=== PATIENT | male | born 1955 | race Caucasian/White ===

== ENCOUNTER → 2018-09-18 14:14 | Outpatient (CLI) | payer BC, SELFPAY ==
--- NOTE | 2018-09-18 14:20 | CT_ITS ---
CT sinus wo con CLINICAL INDICATION: ITS.REASON: CHRONIC SINUSITIS ORDERING PHYSICIAN: Jonathan Byrne PATIENT AGE: 63 years COMPARISON: None TECHNIQUE:Axial images obtained with sagittal and coronal reformats. All CT scans at the facility use one or more dose reduction, viz: automated exposure control, ma/kV adjustment per patient size (including targeted exams where dose is matched to indication, i.e. head), or iterative reconstruction technique. FINDINGS: There is moderate mucosal thickening of the frontal sinuses and severe mucosal thickening of the ethmoid sinuses on both sides left slightly more extensive than right. There are bilateral maxillary retention cysts measuring up to 17 mm on the left is 7 mm on the right. There is opacification of the nature aspect of the left maxillary sinus and scattered gas density. A retention cyst or polyp involves the sphenoid sinus on the right anteriorly at 12 mm with other small retention cysts noted and an air-fluid level in the left aspect of the sphenoid sinus. Lobular soft tissue density extends from the nasal cavity on the left into the nasopharynx measuring 19 x 14 mm consistent with a polyp. Follow-up actually measures approximately 4.5 x 1.2 cm. No bony destructive process. No fracture or dislocation. TMJs have an unremarkable appearance. The orbits have an unremarkable appearance. IMPRESSION: 1. 4.5 cm left-sided nasal polyp extending into the nasopharynx. 2. Paranasal sinusitis with scattered cysts/polyps
== END ==
PROVIDERS: PCP Family Medicine; Visit Provider Allergy & Immunology
DX: J32.9 Chronic sinusitis, unspecified (principal)
CPT/HCPCS: 70486

== ENCOUNTER 2019-04-07 18:22 | Inpatient (IN) ==
--- NOTE | 2019-04-07 18:40 | Emergency Department Note ---
ED Disposition Clinical Impression: Unstable angina, Bigeminy, ASCVD (arteriosclerotic cardiovascular disease), Presence of stent in LAD coronary artery Disposition: Still a Patient Condition on Discharge: Serious Time of Disposition: 18:40 - Critical Care Critical Care Time: No Attestation: On , the high probability of a clinically significant, sudden or life threatening deterioration of the following system(s) required my full and direct attention, intervention and personal management. The time I documented below is in addition to time spent performing reported procedures but includes the follow ing listed in this critical care notation. Medical Decision Making - Medical Records Medical records reviewed: Yes: I reviewed the patient's medical records. - Ezequiel Inquiry Pt receiving controlled substance: No Ezequiel was queried for this patient: No - Lab Data Lab results reviewed: Yes: I reviewed the patient's lab results. General Adult HPI - General Stated complaint: chest pain Time Seen by Provider: 04/07/19 18:25 Mode of Arrival: Ambulatory Source of Information: Patient Limitations: No Limitations - History of Present Illness HPI narrative: chris called about this patient's pmhx and current symptomatology. EKG shows bigeminy on arriva - Related Data Allergies Allergy/AdvReac Type Severity Reaction Status Date / Time No Known Allergies Allergy Unverified 08/01/17 14:40 [facility] History - Hepatitis A Screen Attestation statement:: This patient has been screened for Hepatitis A risk factors. I have reviewed the patient's past medical history: Yes ROS Obtained: Yes All systems reviewed & no additional complaints - Cardiovascular Cardiovascular: Reports chest pain, Reports chest pain at rest, Denies dyspnea Physical Exam - General General appearance: alert, in no apparent distress - Head Head exam: atraumatic, normocephalic, normal inspection - Eye Eye exam: Present: normal appearance, PERRL, EOMI - ENT ENT exam: Present: normal exam, normal oropharynx, mucous membranes moist, TM's normal bilaterally, normal external ear exam - Neck Neck exam: Present: normal inspection, full ROM, trachea midline. Absent: meningismus, lymphadenopathy - Chest Chest inspection: Present: normal inspection, symmetric chest wall rise. Absent: tenderness - Respiratory Respiratory exam: Present: normal lung sounds bilaterally. Absent: respiratory distress - Cardiovascular Cardiovascular exam: Present: regular rate, normal rhythm. Absent: JVD - Abdominal Exam Abdominal exam: Present: soft, normal bowel sounds. Absent: distention, tenderness, guarding - Extremities Exam Extremities exam: Present: normal inspection, full ROM, normal capillary refill. Absent: calf tenderness - Back Exam Back exam: Present: normal inspection. Absent: tenderness - Neurological Exam Neurological exam: Present: alert, oriented X3 - Psychiatric Psychiatric exam: Present: normal affect, normal mood - Skin Skin exam: Present: warm, dry, intact, normal color - Lymphatic Lymphatic Findings: no adenopathy
[2019-04-07 18:50] LABS: Basophils # 0.1 K/mm3 (0-0.2); Basophils % 0.7 % (0.1-2.0); Eosinophils # 0.3 K/mm3 (0.0-0.4); Eosinophils % 3.3 % (0.1-12.0); Hemoglobin 13.8 g/dL (14.1-18.0); Lymphocytes # 4.5 K/mm3 (0.7-4.5); Mean Corpuscular HGB Conc 32.8 g/dL (31.8-35.4); Mean Corpuscular Volume 87.8 fl (80-94); Mean Platelet Volume 7.7 fl (7.4-10.4); Monocytes # 0.5 K/mm3 (0.1-1.0); Monocytes % 4.7 % (1.7-9.3); Neutrophils # 4.9 K/mm3 (1.8-7.8); Neutrophils % 47.4 % (37.0-80.0); Platelet Count 246 K/mm3 (142-424); Red Blood Count 4.78 M/mm3 (4.60-6.20); Red Cell Distribution Width 14.2 % (11.5-17.5); White Blood Count 10.3 K/mm3 (4.8-10.8)
[2019-04-07 19:02] LABS: Alanine Aminotransferase 23 U/L (12-78); Albumin Level 3.8 gm/dL (3.4-5.0); Alkaline Phosphatase 74 U/L (46-116); Anion Gap 14.3 mEq/L (5-15); Aspartate Amino Transferase 16 U/L (15-37); Bilirubin,Direct 0.1 mg/dL (0.0-0.2); Bilirubin,Indirect 0.4 mg/dL (0.0-0.9); Bilirubin,Total 0.5 mg/dL (0.2-1.0); Blood Urea Nitrogen 22 mg/dL (7-18); Calcium 9.4 mg/dL (8.5-10.1); Carbon Dioxide 25 mmol/L (21.0-32.0); Chloride 103 mmol/L (98-107); Glucose 90 mg/dL (74-106); Sodium 138 mmol/L (136-145); Total Protein,Serum 7.6 gm/dL (6.4-8.2)
--- NOTE | 2019-04-07 21:42 | History & Physical Report ---
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 Patient has known coronary artery disease having received a stent to the LAD in 2009. He was seen recently by Dr. Tran and had a recent stress echocardiogram which indicated a low ejection fraction of 20%. Cardiac catheterization was planned for next week but he began having pain this evening and he came to the emergency room. Dr. Vela saw the patient in the emergency room. Dr. Angelo saw the patient in the emergency room as well. Dr. Vivas was contacted before patient actually arrived at the emergency room. Arrangements were made for cardiac catheterization. In the emergency room the patient's chest pain improved. Cardiac catheterization by Dr. Vivas revealed some LAD disease and a significant stenosis of the diagonal branch off of the LAD. The patient was treated with 2 stents in the cardiac [employer]. He has had frequent PVCs throughout the time he has been in the hospital. His initial troponin was less than 0.02. The patient has long-standing hypertension and has hyperlipidemia. He has had long-standing difficulty with esophagitis and distal esophageal stenosis. He has required dilatation multiple times in the past. He takes his omeprazole. He has a strong family history of coronary artery disease. His mother at age 70 of heart disease. [facility] History Medical History: Reports:: Arrhythmia, Gastroesophageal Reflux Disease(GERD), Hyperlipidemia, Hypertension Denies:: Cancer, Diabetes Mellitus Type 1, Diabetes Mellitus Type 2, MRSA *Have you ever received a pneumonia vaccine?: No *Have you received a flu vaccine this season?: No Other Medical History: Reports: Arthritis (Some osteoarthritis), Sinus Problems Laterality Cases: Right: Arthroscopy Knee, Arthroscopy Shoulder Other Surgeries: Yes: Cardiac Catheterization, Colonoscopy, EGD Amputation: No Fractures: Yes Comment: Fracture of the distal radius with repair. 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) Smoking Status: Never smoker Alcohol Intake: current Alcohol Intake Frequency:: holidays/special occasions only *Occupational Status:: employed Housing: house *Travel in the last 8 weeks: None - Psychiatric History Expresses thoughts of harming self/others: None Suicide Plan Description: No Plan Family Hx:: Anemia, Asthma, Cancer, Diabetes, Heart Attack, Hyperlipidemia, Hypertension, Kidney Disease Review of Systems - Constitutional Reports fatigue, Denies body ache(s), Denies chills - Eyes Denies change in vision - ENT Reports hearing loss - *Cardiovascular Reports chest pain, Reports chest pain at rest, Reports leg pain with activity, Denies shortness of breath with activity, Denies leg swelling, Denies rapid, pounding, or irregular heartbeat - *Respiratory Reports cough (Occasional allergic), Denies chest congestion, Denies shortness of breath, Denies shortness of breath with activity, Denies wheezing - *Gastrointestinal Denies change in stools, Denies difficulty swallowing (None current) - *Musculoskeletal Reports joint pain (Knee pain) - *Neurologic Denies localized weakness, Denies lack of coordination, Denies loss of vision, Denies dizziness - Psychiatric Denies behavioral changes - Allergic/Immunologic Denies GI upset with certain foods Meds Allergies Allergy/AdvReac Type Severity Reaction Status Date / Time No Known Allergies Allergy Unverified 08/01/17 14:40 Exam Vital signs and Labs for Last 24 Hours: Temp Pulse Resp BP Pulse Ox 98.1 F 98 H 18 131/78 97 04/07/19 19:10 04/07/19 20:20 04/07/19 20:20 04/07/19 20:20 04/07/19 20:20 Laboratory Results - last 24 hr 04/07/19 18:27: WBC 10.3, RBC 4.78, Hgb 13.8 L, Hct 42.0, MCV 87.8, MCH 28.8, MCHC 32.8, RDW 14.2, Plt Count 246, MPV 7.7, Neut % (Auto) 47.4, Lymph % (Auto) 44.0, [place] % (Auto) 4.7, Eos % (Auto) 3.3, Baso % (Auto) 0.7, Neut # (Auto) 4.9, Lymph # (Auto) 4.5, [place] # (Auto) 0.5, Eos # (Auto) 0.3, Baso # (Auto) 0.1 04/07/19 18:27: Sodium 138, Potassium 4.3, Chloride 103, Carbon Dioxide 25, Anion Gap 14.3, BUN 22 H, Creatinine 1.22, Estimated Creat Clear 88, Estimated GFR 60, Est GFR ( Amer) 72, Glucose 90, Calcium 9.4, Total Bilirubin 0.5, Direct Bilirubin 0.1, Indirect Bilirubin 0.4, AST 16, ALT 23, Alkaline Phosphatase 74, Troponin I < 0.02, Total Protein 7.6, Albumin 3.8 I & O for Last 24 hours: Intake & Output 04/05/19 04/06/19 04/07/19 04/08/19 11:59 11:59 11:59 11:59 Weight 207 lb 6 oz - Constitutional no acute distress Comments: Some chest pain when admitted. Improved after admission. - *Routine HEENT Exam Head: Present: normocephalic Eye: Present: PERRL, normal accommodation ENT: Present: mucous membranes moist - *Routine Neck Exam Present: full ROM - Routine Chest/Breast/Axilla Exam Chest wall: Absent: tenderness - *Routine Respiratory Exam Present: CTA bilaterally (A few right basilar rales clear with inspiration.) - *Routine Cardiovascular Exam Present: RRR (Frequent wide-complex ectopics usually singlets) - *Routine Abdominal Exam Present: soft. Absent: tenderness, mass, hernia - *Routine Extremities Exam Present: edema (Trace) - Routine Back/Spine/Pelvis Exam Comments: Normal - *Routine Neurological Exam Present: alert, oriented X3. Absent: motor deficit Assessment and Plan (1) Coronary artery disease Current visit: Yes Status: Acute Category: Medical Code(s): I25.10 - Atherosclerotic heart disease of [place] coronary artery without angina pectoris (2) Chest pain Current visit: Yes Status: Acute Category: Medical Code(s): R07.9 - Chest pain, unspecified (3) Unstable angina Current visit: Yes Status: Acute Category: Medical Code(s): I20.0 - Unstable angina (4) Bigeminy Current visit: Yes Status: Acute Category: Medical Code(s): I49.9 - Cardiac arrhythmia, unspecified (5) Hypertension Current visit: Yes Status: Acute Category: Medical Code(s): I10 - Essential (primary) hypertension (6) Hyperlipidemia Current visit: Yes Status: Acute Category: Medical Code(s): E78.5 - Hyperlipidemia, unspecified (7) ASCVD (arteriosclerotic cardiovascular disease) Current visit: Yes Status: Acute Category: Medical Code(s): I25.10 - Atherosclerotic heart disease of [place] coronary artery without angina pectoris (8) Presence of stent in LAD coronary artery Current visit: Yes Status: Acute Category: Medical Code(s): Z95.5 - Presence of coronary angioplasty implant and graft - Assessment and plan all Dx Assessment and Plan for all problems:: The patient received 2 stents. Will be monitored through the night. Echocardiogram in the morning will be obtained to check ejection fraction. Indications will be adjusted accordingly.
[2019-04-08 05:51] LABS: Basophils % 0.5 % (0.1-2.0); Eosinophils # 0.3 K/mm3 (0.0-0.4); Eosinophils % 3.1 % (0.1-12.0); Hematocrit 40.1 % (42.0-52.0); Hemoglobin 13.1 g/dL (14.1-18.0); Lymphocytes # 2.7 K/mm3 (0.7-4.5); Lymphocytes % 32.7 % (10-50); Mean Corpuscular HGB Conc 32.5 g/dL (31.8-35.4); Mean Corpuscular Volume 88.4 fl (80-94); Mean Platelet Volume 7.9 fl (7.4-10.4); Monocytes # 0.4 K/mm3 (0.1-1.0); Monocytes % 4.7 % (1.7-9.3); Neutrophils # 4.8 K/mm3 (1.8-7.8); Neutrophils % 59.1 % (37.0-80.0); Platelet Count 208 K/mm3 (142-424); Red Blood Count 4.54 M/mm3 (4.60-6.20); Red Cell Distribution Width 14.4 % (11.5-17.5); White Blood Count 8.1 K/mm3 (4.8-10.8)
[2019-04-08 06:42] LABS: Albumin Level 3.1 gm/dL (3.4-5.0); Albumin/Globulin Ratio 0.9 (1.1-1.8); Anion Gap 14.9 mEq/L (5-15); Bilirubin,Total 0.6 mg/dL (0.2-1.0); Calcium 9.1 mg/dL (8.5-10.1); Chol/HDL Ratio 2.8 (1-3.5); Globulin 3.3 gm/dl (1.3-3.2); Total Protein,Serum 6.4 gm/dL (6.4-8.2)
--- NOTE | 2019-04-08 07:49 | Pharmacy Consult Notes ---
[facility] Pharmacy VTE Monitoring - Patient Demographics Admission date: 04/07/19 Report Date: 04/08/19 Time: 07:49 Allergies/Adverse Reactions: Patient Allergies No Known Allergies Allergy (Verified 04/08/19 00:01) Height: 1.85 m Weight: 94.064 kg Patient Problems: Current Active Problems Unstable angina (Acute) Bigeminy (Acute) ASCVD (arteriosclerotic cardiovascular disease) (Acute) Presence of stent in LAD coronary artery (Acute) Hypertension (Acute) Hyperlipidemia (Acute) Coronary artery disease (Acute) Chest pain (Acute) - VTE Risk Labs: VTE Related Lab Results Hgb 13.1 g/dL (14.1-18.0) L 04/08/19 05:10 Hct 40.1 % (42.0-52.0) L 04/08/19 05:10 Plt Count 208 K/mm3 (142-424) 04/08/19 05:10 BUN 18 mg/dL (7-18) 04/08/19 05:10 Creatinine 1.01 mg/dL (0.70-1.30) 04/08/19 05:10 Estimated Creat Clear 98 mL/min (50-200) 04/08/19 05:10 VTE Score: 5 VTE Risk Level: Low Risk - Prophylaxis VTE Prophylaxis Ordered?: Yes Types of VTE Prophylaxis: TEDS Knee High Location of Applied Device: Bilateral Lower Extremeties - VTE Diagnosis Confirmed Treatment or plan recommended: Continue Current Treatment
--- NOTE | 2019-04-08 08:05 | Progress Note ---
Internal Medicine - PN: Subj *Date: 04/08/19 *Time: 08:02 Interval history: Patient states he is doing well this morning. Did have several hours of sleep during the night. He is eating breakfast without problems. Is not been out of bed as yet. He states he continues to have frequent ectopy. He denies chest pain and shortness of breath. Exam Vital signs and Labs for Last 24 Hours: Temp Pulse Resp BP Pulse Ox 98.1 F 99 H 15 139/73 97 04/08/19 08:00 04/08/19 08:00 04/08/19 08:00 04/08/19 08:00 04/08/19 08:00 Laboratory Results - last 24 hr 04/07/19 18:27: WBC 10.3, RBC 4.78, Hgb 13.8 L, Hct 42.0, MCV 87.8, MCH 28.8, MCHC 32.8, RDW 14.2, Plt Count 246, MPV 7.7, Neut % (Auto) 47.4, Lymph % (Auto) 44.0, Park % (Auto) 4.7, Eos % (Auto) 3.3, Baso % (Auto) 0.7, Neut # (Auto) 4.9, Lymph # (Auto) 4.5, Park # (Auto) 0.5, Eos # (Auto) 0.3, Baso # (Auto) 0.1 04/07/19 18:27: Sodium 138, Potassium 4.3, Chloride 103, Carbon Dioxide 25, Anion Gap 14.3, BUN 22 H, Creatinine 1.22, Estimated Creat Clear 88, Estimated GFR 60, Est GFR ( Amer) 72, Glucose 90, Calcium 9.4, Total Bilirubin 0.5, Direct Bilirubin 0.1, Indirect Bilirubin 0.4, AST 16, ALT 23, Alkaline Phosphatase 74, Troponin I < 0.02, Total Protein 7.6, Albumin 3.8 04/08/19 05:10: Sodium 139, Potassium 3.9, Chloride 105, Carbon Dioxide 23, Anion Gap 14.9, BUN 18, Creatinine 1.01, Estimated Creat Clear 98, Estimated GFR 74, Est GFR ( Amer) 90 D, Glucose 90, Calcium 9.1, Total Bilirubin 0.6, AST 18, ALT 20, Alkaline Phosphatase 64, Total Creatine Kinase 117, CK-MB (CK-2) 5.7 H, CK-MB (CK-2) Rel Index 4.9 H, Troponin I 1.06 H, Total Protein 6.4, Albumin 3.1 L D, Globulin 3.3 H, Albumin/Globulin Ratio 0.9 L, Triglycerides 86, Cholesterol 125 L, LDL Cholesterol 64, VLDL Cholesterol 17, HDL Cholesterol 44, Cholesterol/HDL Ratio 2.8 04/08/19 05:10: WBC 8.1, RBC 4.54 L, Hgb 13.1 L, Hct 40.1 L, MCV 88.4, MCH 28.8, MCHC 32.5, RDW 14.4, Plt Count 208, MPV 7.9, Neut % (Auto) 59.1, Lymph % (Auto) 32.7, [place] % (Auto) 4.7, Eos % (Auto) 3.1, Baso % (Auto) 0.5, Neut # (Auto) 4.8, Lymph # (Auto) 2.7, [place] # (Auto) 0.4, Eos # (Auto) 0.3, Baso # (Auto) 0.0 I & O for Last 24 hours: Intake & Output 04/05/19 04/06/19 04/07/19 04/08/19 11:59 11:59 11:59 11:59 Output Total 850 / 850 Balance -850 / -850 Weight 207 lb 6.01 oz Radiology Reports for the Last 24 Hours: Chest x-ray 04/07/2019 IMPRESSION: Mild cardiomegaly, no acute chest pathology noted Cardiac catheterization 04/07/2019 IMPRESSION Severe to critical disease and a greater than 3 mm large first diagonal artery which was successfully stented with one drug-eluting stent followed by bifurcating stent to the proximal to mid LAD. Left ventricular dilatation with severely elevated LVEDP - Constitutional no acute distress Comments: Sitting up in the bed and has just completed his breakfast. Appears comfortable. - *Routine Respiratory Exam Comments: Few right basilar crackles - *Routine Cardiovascular Exam Present: RRR Comments: Ongoing bigeminal PVCs. - *Routine Abdominal Exam Present: soft, normoactive bowel sounds. Absent: tenderness, distended - *Routine Extremities Exam Absent: edema, calf tenderness - *Routine Neurological Exam Present: alert, oriented X3 Assessment and Plan (1) Coronary artery disease Current visit: Yes Status: Acute Category: Medical Code(s): I25.10 - Atherosclerotic heart disease of [place] coronary artery without angina pectoris (2) Chest pain Current visit: Yes Status: Acute Category: Medical Code(s): R07.9 - Chest pain, unspecified (3) Unstable angina Current visit: Yes Status: Acute Category: Medical Code(s): I20.0 - Unstable angina (4) Bigeminy Current visit: Yes Status: Acute Category: Medical Code(s): I49.9 - Cardiac arrhythmia, unspecified (5) Hypertension Current visit: Yes Status: Acute Category: Medical Code(s): I10 - Essential (primary) hypertension (6) Hyperlipidemia Current visit: Yes Status: Acute Category: Medical Code(s): E78.5 - Hyperlipidemia, unspecified (7) ASCVD (arteriosclerotic cardiovascular disease) Current visit: Yes Status: Acute Category: Medical Code(s): I25.10 - Atherosclerotic heart disease of [place] coronary artery without angina pectoris (8) Presence of stent in LAD coronary artery Current visit: Yes Status: Acute Category: Medical Code(s): Z95.5 - Presence of coronary angioplasty implant and graft - Assessment and plan all Dx Assessment and Plan for all problems:: We will continue as per cardiology recommendations.
--- NOTE | 2019-04-08 09:01 | Consult Report ---
History of Present Illness Consult date: 04/08/19 Requesting physician: Elke Angelo Consult reason: chest pain Chief complaint: chest pain Additional Medical History:: 1. Coronary artery disease A. History of LAD stent, 2009, Dr. Tran B. Acute coronary syndrome, 04/07/2019, ANGIOGRAPHIC RESULTS The left main artery Normal. The left anterior descending artery Has proximal eccentric 30 to 40% stenosis followed by a mid LAD stent which is widely patent with minimal in-stent restenosis. The LAD is a large vessel which wraps the apex. The first diagonal artery is a large 3 mm vessel and has an ostial focal greater than 90% stenosis best visualized in the AP cranial views. The circumflex artery Small nondominant with mild atheromatous plaque The right coronary artery Large dominant vessel with proximal and mid vessel 30 to 40% stenoses with a 30 to 40% stenosis in the posterior lateral branch The OSULLIVAN ventriculogram reveals Mild left ventricular dilatation ejection fraction 35% The left ventricular end-diastolic pressure Severely elevated at 30 to 35 mmHg IMPRESSION Severe to critical disease and a greater than 3 mm large first diagonal artery which was successfully stented with one drug-eluting stent followed by bifurcating stent to the proximal to mid LAD. Left ventricular dilatation with severely elevated LVEDP PLAN 1. Brilinta and aspirin 2. Entresto and carvedilol 3. Patient has severely elevated LVEDP and should be placed on low-dose loop diuretic combined with Aldactone 4. LDL goal 55. Start high intensity statin 5. Cardiac rehabilitation 6. Avoidance of tobacco products 7. Complete absence of any social alcohol beverages 8. Echocardiogram in the morning. If ejection fraction is confirmed to be less than 35% patient should be discharged home with a LifeVest 2. Hypertension 3. Hyperlipidemia 4. Reflux with history of esophageal stricture, status post multiple dilatations. 5. History of coronary artery disease in his mother at age 70 and maternal relatives. 6. 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 Patient has known coronary artery disease having received a stent to the LAD in 2009. He was seen recently by Dr. Tran and had a recent stress echocardiogram which indicated a low ejection fraction of 20%. Cardiac catheterization was planned for next week but he began having pain this evening and he came to the emergency room. Dr. Vela saw the patient in the emergency room. Dr. Angelo saw the patient in the emergency room as well. Dr. Vivas was contacted before patient actually arrived at the emergency room. Arrangements were made for cardiac ca theterization. In the emergency room the patient's chest pain improved. Cardiac catheterization by Dr. Vivas revealed some LAD disease and a significant stenosis of the diagonal branch off of the LAD. The patient was treated with 2 stents in the cardiac [employer]ust[employer]ial [employer]. He has had frequent PVCs throughout the time he has been in the hospital. His initial troponin was less than 0.02. The patient has long-standing hypertension and has hyperlipidemia. He has had long-standing difficulty with esophagitis and distal esophageal stenosis. He has required dilatation multiple times in the past. He takes his omeprazole. He has a strong family history of coronary artery disease. His mother at age 70 of heart disease The above per Dr. Angelo This AM he is feeling well without chest discomfort. Denies any exertional symptoms of late. He is an avid outdoorsman without recent change in exercise ability. Dr. Angelo relates pt had a stress test with myoview 2 yrs ago with LVEF of 61%. Telemetry at this time shows sinus rhythm with ventricular bigeminy. Preliminary echocardiogram today shows ejection fraction less than 20%. [facility] History Medical History: Reports:: Arrhythmia, Gastroesophageal Reflux Disease(GERD), Hyperlipidemia, Hypertension, Peripheral Artery Disease Denies:: Cancer, Diabetes Mellitus Type 1, Diabetes Mellitus Type 2, MRSA *Have you ever received a pneumonia vaccine?: No *Have you received a flu vaccine this season?: No Other Medical History: Reports: Arthritis (Some osteoarthritis), Sinus Problems Laterality Cases: Right: Arthroscopy Knee, Arthroscopy Shoulder Other Surgeries: Yes: Cardiac Catheterization, Colonoscopy, EGD Amputation: No Fractures: Yes - *Social History Educational Level: Completed 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) Smoking Status: Never smoker Alcohol Intake: current Alcohol Intake Frequency:: holidays/special occasions only *Occupational Status:: employed Housing: house *Travel in the last 8 weeks: None - Psychiatric History Expresses thoughts of harming self/others: None Suicide Plan Description: No Plan Family Hx:: Anemia, Asthma, Cancer, Diabetes, Heart Attack, Hyperlipidemia, Hypertension, Kidney Disease Meds Home Medications Medication Instructions Recorded Confirmed Type Butalbital/Acetaminophen 1 - 2 each PO Q4HP PRN 04/08/19 04/08/19 History [Butalbital-Acetaminophn 50-325] Esomeprazole Magnesium 40 mg PO DAILY 04/08/19 04/08/19 History Fluticasone Propionate [Flovent 2 puff INHALATION BID 04/08/19 04/08/19 History Hfa 110mcg Inhaler] Fluticasone Propionate [Xhance] 1 spray NS BID 04/08/19 04/08/19 History Metformin HCl 500 mg PO DAILY 04/08/19 04/08/19 History Montelukast Sodium [Montelukast 10 mg PO HS 04/08/19 04/08/19 History 10mg Tab] Ramipril 5 mg PO DAILY 04/08/19 04/08/19 History Rosuvastatin Calcium 20 mg PO DAILY 04/08/19 04/08/19 History Allergies Allergy/AdvReac Type Severity Reaction Status Date / Time No Known Allergies Allergy Verified 04/08/19 00:01 Review of Systems - *Cardiovascular Reports chest pain, Reports shortness of breath - *Respiratory Reports shortness of breath, Denies cough - *Gastrointestinal Denies abdominal pain, Denies loose stools, Denies nausea, Denies vomiting - *Genitourinary Denies blood in urine - *Musculoskeletal Denies joint pain, Denies back pain - *Neurologic Denies behavioral changes, Denies localized weakness, Denies lack of coordination, Denies loss of vision, Denies dizziness Exam Vital signs and Labs for Last 24 Hours: Temp Pulse Resp BP Pulse Ox 98.1 F 99 H 15 139/73 97 04/08/19 08:00 04/08/19 08:00 04/08/19 08:00 04/08/19 08:00 04/08/19 08:00 Laboratory Results - last 24 hr 04/07/19 18:27: WBC 10.3, RBC 4.78, Hgb 13.8 L, Hct 42.0, MCV 87.8, MCH 28.8, MCHC 32.8, RDW 14.2, Plt Count 246, MPV 7.7, Neut % (Auto) 47.4, Lymph % (Auto) 44.0, [place] % (Auto) 4.7, Eos % (Auto) 3.3, Baso % (Auto) 0.7, Neut # (Auto) 4.9, Lymph # (Auto) 4.5, [place] # (Auto) 0.5, Eos # (Auto) 0.3, Baso # (Auto) 0.1 04/07/19 18:27: Sodium 138, Potassium 4.3, Chloride 103, Carbon Dioxide 25, Anion Gap 14.3, BUN 22 H, Creatinine 1.22, Estimated Creat Clear 88, Estimated GFR 60, Est GFR ( Amer) 72, Glucose 90, Calcium 9.4, Total Bilirubin 0.5, Direct Bilirubin 0.1, Indirect Bilirubin 0.4, AST 16, ALT 23, Alkaline Phosphatase 74, Troponin I < 0.02, Total Protein 7.6, Albumin 3.8 04/08/19 05:10: Sodium 139, Potassium 3.9, Chloride 105, Carbon Dioxide 23, Anion Gap 14.9, BUN 18, Creatinine 1.01, Estimated Creat Clear 98, Estimated GFR 74, Est GFR ( Amer) 90 D, Glucose 90, Calcium 9.1, Total Bilirubin 0.6, AST 18, ALT 20, Alkaline Phosphatase 64, Total Creatine Kinase 117, CK-MB (CK-2) 5.7 H, CK-MB (CK-2) Rel Index 4.9 H, Troponin I 1.06 H, Total Protein 6.4, Albumin 3.1 L D, Globulin 3.3 H, Albumin/Globulin Ratio 0.9 L, Triglycerides 86, Cholesterol 125 L, LDL Cholesterol 64, VLDL Cholesterol 17, HDL Cholesterol 44, Cholesterol/HDL Ratio 2.8 04/08/19 05:10: WBC 8.1, RBC 4.54 L, Hgb 13.1 L, Hct 40.1 L, MCV 88.4, MCH 28.8, MCHC 32.5, RDW 14.4, Plt Count 208, MPV 7.9, Neut % (Auto) 59.1, Lymph % (Auto) 32.7, [place] % (Auto) 4.7, Eos % (Auto) 3.1, Baso % (Auto) 0.5, Neut # (Auto) 4.8, Lymph # (Auto) 2.7, [place] # (Auto) 0.4, Eos # (Auto) 0.3, Baso # (Auto) 0.0 I & O for Last 24 hours: Intake & Output 04/05/19 04/06/19 04/07/19 04/08/19 11:59 11:59 11:59 11:59 Output Total 850 / 850 Balance -850 / -850 Weight 207 lb 6.01 oz - *Routine HEENT Exam Head: Present: normocephalic Eye: Present: EOMI, PERRL ENT: Present: mucous membranes moist - *Routine Neck Exam Present: supple. Absent: JVD, carotid bruit - *Routine Respiratory Exam Present: CTA bilaterally. Absent: accessory muscle use, rales, rhonchi, wheezes - *Routine Cardiovascular Exam Present: RRR. Absent: murmur, gallop, rubs - *Routine Abdominal Exam Present: soft. Absent: tenderness, distended, guarding - *Routine Extremities Exam Present: edema. Absent: calf tenderness - *Routine Neurological Exam Present: alert, oriented X3, moving all extremities Assessment and Plan (1) Coronary artery disease Current visit: Yes Status: Acute Category: Medical Code(s): I25.10 - Atherosclerotic heart disease of [place] coronary artery without angina pectoris (2) Unstable angina Current visit: Yes Status: Acute Category: Medical Code(s): I20.0 - Unstable angina (3) Bigeminy Current visit: Yes Status: Acute Category: Medical Code(s): I49.9 - Cardiac arrhythmia, unspecified (4) Hypertension Current visit: Yes Status: Acute Category: Medical Code(s): I10 - Essential (primary) hypertension (5) Hyperlipidemia Current visit: Yes Status: Acute Category: Medical Code(s): E78.5 - Hyperlipidemia, unspecified (6) ASCVD (arteriosclerotic cardiovascular disease) Current visit: Yes Status: Acute Category: Medical Code(s): I25.10 - Atherosclerotic heart disease of [place] coronary artery without angina pectoris (7) Presence of stent in LAD coronary artery Current visit: Yes Status: Acute Category: Medical Code(s): Z95.5 - Pr esence of coronary angioplasty implant and graft (8) Cardiomyopathy Current visit: Yes Status: Acute Category: Medical Code(s): I42.9 - Cardiomyopathy, unspecified - Assessment and plan all Dx Assessment and Plan for all problems:: 1. Acute coronary syndrome status post 2 drug-eluting stents placed to the bifurcating LAD and diagonal system, on aspirin and Brilinta 2. Cardiomyopathy, severe, Coreg therapy has begun with plans to institute Entresto this evening due to recent ramipril use. Lasix therapy has begun as well. We will add Aldactone 25 mg daily and digoxin therapy. 3. Patient will need LifeVest upon discharge with consideration for AICD implant in 3 months or sooner if patient is shocked for V. tach/VF. 4. Recommend cardiac rehab in the future
--- NOTE | 2019-04-08 09:43 | Electrocardiograph Report ---
APPROVED REPORT Exam: Resting ECG HR:96 bpm ECG Measurements Heart Rate 96 AXES [place] 190 P 52 QRSd 82 QRS -1 QT 380 T72 QTc 480 <Conclusion> Sinus rhythm with frequent and consecutive premature ventricular complexes Prolonged QT Abnormal ECG Electronically signed by : Nelson Macedo, 04/08/2019 09:42:43
--- NOTE | 2019-04-08 09:43 | Electrocardiograph Report ---
APPROVED REPORT Exam: Resting ECG HR:110 bpm ECG Measurements Heart Rate 110 AXES [place] 172 P 56 QRSd 84 QRS -8 QT 346 T69 QTc 468 <Conclusion> Sinus tachycardia with bigeminy pattern Otherwise normal ECG Electronically signed by : Nelson Macedo, 04/08/2019 09:43:07
[2019-04-09 07:55] LABS: Basophils % 0.4 % (0.1-2.0); Eosinophils # 0.3 K/mm3 (0.0-0.4); Hematocrit 44.9 % (42.0-52.0); Hemoglobin 15.3 g/dL (14.1-18.0); Lymphocytes # 2.7 K/mm3 (0.7-4.5); Lymphocytes % 28.7 % (10-50); Mean Corpuscular HGB Conc 34.1 g/dL (31.8-35.4); Mean Corpuscular Volume 86.1 fl (80-94); Mean Platelet Volume 6.9 fl (7.4-10.4); Monocytes # 0.6 K/mm3 (0.1-1.0); Monocytes % 6.2 % (1.7-9.3); Neutrophils # 5.8 K/mm3 (1.8-7.8); Neutrophils % 61.7 % (37.0-80.0); Platelet Count 242 K/mm3 (142-424); Red Blood Count 5.21 M/mm3 (4.60-6.20); Red Cell Distribution Width 14.2 % (11.5-17.5); White Blood Count 9.3 K/mm3 (4.8-10.8)
[2019-04-09 08:01] LABS: Anion Gap 15.6 mEq/L (5-15); Calcium 9.4 mg/dL (8.5-10.1)
--- NOTE | 2019-04-09 08:09 | Progress Note ---
Internal Medicine - PN: Subj *Date: 04/09/19 *Time: 08:06 Interval history: Patient had a twinge of chest pain yesterday. He denies shortness of breath. He Is eating without problems. He ambulates without difficulty. Monitor showing fewer PVCs. Exam Vital signs and Labs for Last 24 Hours: Temp Pulse Resp BP Pulse Ox 98.0 F 82 17 133/92 H 99 04/09/19 07:41 04/09/19 07:41 04/09/19 07:41 04/09/19 07:41 04/09/19 07:41 Laboratory Results - last 24 hr 04/07/19 19:10: Activated Clotting Time 305 H* 04/07/19 19:25: Activated Clotting Time 322 H* 04/09/19 07:32: WBC 9.3, RBC 5.21, Hgb 15.3, Hct 44.9, MCV 86.1, MCH 29.3, MCHC 34.1, RDW 14.2, Plt Count 242, MPV 6.9 L, Neut % (Auto) 61.7, Lymph % (Auto) 28.7, [place] % (Auto) 6.2, Eos % (Auto) 3.0, Baso % (Auto) 0.4, Neut # (Auto) 5.8, Lymph # (Auto) 2.7, [place] # (Auto) 0.6, Eos # (Auto) 0.3, Baso # (Auto) 0.0 04/09/19 07:32: Sodium 135 L, Potassium 3.6, Chloride 100, Carbon Dioxide 23, Anion Gap 15.6 H, BUN 23 H D, Creatinine 1.10, Estimated Creat Clear 91, Estimated GFR 67, Est GFR ( Amer) 82, Glucose 169 H, Calcium 9.4 I & O for Last 24 hours: Intake & Output 04/06/19 04/07/19 04/08/19 04/09/19 11:59 11:59 11:59 11:59 Intake Total 760 / 760 Output Total 850 / 850 300 / 300 Balance -850 / -850 460 / 460 Weight 207 lb 6.01 oz 208 lb 2 oz - Constitutional no acute distress Comments: Sitting in a chair at bedside fully dressed and talking with a friend. Appears very comfortable - *Routine Respiratory Exam Present: CTA bilaterally (Anteriorly and posteriorly) - *Routine Cardiovascular Exam Present: RRR Comments: Fewer PVCs. Normal sinus rhythm. - *Routine Extremities Exam Absent: edema, calf tenderness - *Routine Neurological Exam Present: alert, oriented X3 Assessment and Plan (1) Coronary artery disease Current visit: Yes Status: Acute Category: Medical Code(s): I25.10 - Atherosclerotic heart disease of [place] coronary artery without angina pectoris (2) Unstable angina Current visit: Yes Status: Acute Category: Medical Code(s): I20.0 - Unstable angina (3) Bigeminy Current visit: Yes Status: Acute Category: Medical Code(s): I49.9 - Cardiac arrhythmia, unspecified (4) Hypertension Current visit: Yes Status: Acute Category: Medical Code(s): I10 - Essential (primary) hypertension (5) Hyperlipidemia Current visit: Yes Status: Acute Category: Medical Code(s): E78.5 - Hyperlipidemia, unspecified (6) ASCVD (arteriosclerotic cardiovascular disease) Current visit: Yes Status: Acute Category: Medical Code(s): I25.10 - Atherosclerotic heart disease of [place] coronary artery without angina pectoris (7) Presence of stent in LAD coronary artery Current visit: Yes Status: Acute Category: Medical Code(s): Z95.5 - Presence of coronary angioplasty implant and graft (8) Cardiomyopathy Current visit: Yes Status: Acute Category: Medical Code(s): I42.9 - Cardiomyopathy, unspecified - Assessment and plan all Dx Assessment and Plan for all problems:: Patient to be fitted with a LifeVest. He has been started on Entresto. Will follow cardiology recommendation for discharge.
--- NOTE | 2019-04-09 09:07 | Progress Note ---
Subjective Date: 04/09/19 Time: 09:04 Principal diagnosis: ACS, coronary stenting, cardiomyopathy Interval history: 63-year-old white male in bedside chair in no acute distress. Denies any chest pain this a.m. but had a twinge of discomfort yesterday afternoon that was brief in duration. Review of telemetry shows continued PVCs but with less frequency. Blood pressure remains controlled. Patient is anxious to be discharged home. Zoll LifeVest is still pending at this time. Exam Vital signs and Labs for Last 24 Hours: Temp Pulse Resp BP Pulse Ox 98.0 F 89 17 133/92 H 99 04/09/19 07:41 04/09/19 08:27 04/09/19 07:41 04/09/19 07:41 04/09/19 07:41 Laboratory Results - last 24 hr 04/07/19 19:10: Activated Clotting Time 305 H* 04/07/19 19:25: Activated Clotting Time 322 H* 04/09/19 07:32: WBC 9.3, RBC 5.21, Hgb 15.3, Hct 44.9, MCV 86.1, MCH 29.3, MCHC 34.1, RDW 14.2, Plt Count 242, MPV 6.9 L, Neut % (Auto) 61.7, Lymph % (Auto) 28.7, [place] % (Auto) 6.2, Eos % (Auto) 3.0, Baso % (Auto) 0.4, Neut # (Auto) 5.8, Lymph # (Auto) 2.7, [place] # (Auto) 0.6, Eos # (Auto) 0.3, Baso # (Auto) 0.0 04/09/19 07:32: Sodium 135 L, Potassium 3.6, Chloride 100, Carbon Dioxide 23, Anion Gap 15.6 H, BUN 23 H D, Creatinine 1.10, Estimated Creat Clear 91, Estimated GFR 67, Est GFR ( Amer) 82, Glucose 169 H, Calcium 9.4 I & O for Last 24 hours: Intake & Output 04/06/19 04/07/19 04/08/19 04/09/19 11:59 11:59 11:59 11:59 Intake Total 760 / 760 Output Total 850 / 850 300 / 300 Balance -850 / -850 460 / 460 Weight 207 lb 6.01 oz 208 lb 2 oz - *Routine HEENT Exam Head: Present: normocephalic Eye: Present: EOMI, PERRL ENT: Present: mucous membranes moist - *Routine Respiratory Exam Present: CTA bilaterally. Absent: accessory muscle use, rales, rhonchi, wheezes - *Routine Cardiovascular Exam Present: RRR. Absent: murmur, gallop, rubs - *Routine Abdominal Exam Present: soft. Absent: tenderness, distended, guarding - *Routine Extremities Exam Absent: edema, calf tenderness - *Routine Neurological Exam Present: alert, oriented X3, moving all extremities Progress Note: A&P (1) Coronary artery disease Status: Acute Current Visit: Yes (2) Unstable angina Status: Acute Current Visit: Yes (3) Bigeminy Status: Acute Current Visit: Yes (4) Hypertension Status: Acute Current Visit: Yes (5) Hyperlipidemia Status: Acute Current Visit: Yes (6) ASCVD (arteriosclerotic cardiovascular disease) Status: Acute Current Visit: Yes (7) Presence of stent in LAD coronary artery Status: Acute Current Visit: Yes (8) Cardiomyopathy Status: Acute Current Visit: Yes Assessment and Plan for All Diagnoses:: 1. Coronary stenting, continue aspirin 81 mg daily Brilinta 90 mg twice daily along with atorvastatin 40 mg daily 2. Severe cardiomyopathy, continue Coreg 6.25 mg twice daily, Entresto 24/26 mg twice daily, spironolactone 25 mg daily, digoxin 0.125 mg daily and Lasix 40 mg daily 3. Zoll LifeVest to be placed today prior to discharge 4. Recommend a BMP later this week prior to follow-up with Dr. Angelo on Monday 5. Follow-up in our office next Monday or Monday 6. Limited duty at work until follow-up next week.
--- NOTE | 2019-04-10 13:47 | Discharge Summary ---
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 Patient noted to have coronary artery disease having received a stent to the LAD in 2009. He was seen recently by Dr. Tran and had a recent stress echocardiogram which indicated a low ejection fraction of 20%. Cardiac catheterization was planned for next week but he began having pain the evening of admission and thus came to the emergency room. Dr. Vela saw the patient in the emergency room. Dr. Angelo saw the patient in the emergency room as well. Dr. Vivas was contacted before patient actually arrived at the emergency room. Arrangements were made for cardiac catheterization. In the emergency room the patient's chest pain improved. Cardiac catheterization by Dr. Vivas revealed some LAD disease and a significant stenosis of the diagonal branch off of the LAD. The patient was treated with 2 stents in the cardiac [place]. He had frequent PVCs throughout the time he was in the hospital. His initial troponin was less than 0.02. He was noted to have a strong family history of coronary artery disease. His mother at age 70 of heart disease. Hospital Course Hospital Course: During admission patient after stent placements had twinges only of chest disco mfort. He denied shortness of breath. Initially he had frequent PVCs and these decreased after being started on Entresto. On 04/09/2019 patient continued to have fewer PVCs. He was ambulating without problems. He was felt to be stable to be discharged to home. He was discharged on this date in stable and satisfactory condition with the following cardiology plan: 1. Coronary stenting, continue aspirin 81 mg daily Brilinta 90 mg twice daily along with atorvastatin 40 mg daily 2. Severe cardiomyopathy, continue Coreg 6.25 mg twice daily, Entresto 24/26 mg twice daily, spironolactone 25 mg daily, digoxin 0.125 mg daily and Lasix 40 mg daily 3. Zoll LifeVest to be placed today prior to discharge 4. Recommend a BMP later this week prior to follow-up with Dr. Angelo on Monday 5. Follow-up in our office next Monday or Monday 6. Limited duty at work until follow-up next week. 7. LDL goal 55. Start high intensity statin 8. Cardiac rehabilitation 9. Avoidance of tobacco products 10. Complete absence of any social alcohol beverages Objective Vital signs: Temp Pulse Resp BP Pulse Ox 98.2 F 100 H 17 114/53 L 96 04/09/19 11:40 04/09/19 12:00 04/09/19 11:40 04/09/19 11:40 04/09/19 11:40 Narrative: Exam Vital signs and Labs for Last 24 Hours: Temp Pulse Resp BP Pulse Ox 98.0 F 82 17 133/92 H 99 04/09/19 07:41 04/09/19 07:41 04/09/19 07:41 04/09/19 07:41 04/09/19 07:41 Laboratory Results - last 24 hr 04/07/19 19:10: Activated Clotting Time 305 H* 04/07/19 19:25: Activated Clotting Time 322 H* 04/09/19 07:32: WBC 9.3, RBC 5.21, Hgb 15.3, Hct 44.9, MCV 86.1, MCH 29.3, MCHC 34.1, RDW 14.2, Plt Count 242, MPV 6.9 L, Neut % (Auto) 61.7, Lymph % (Auto) 28.7, [place] % (Auto) 6.2, Eos % (Auto) 3.0, Baso % (Auto) 0.4, Neut # (Auto) 5.8, Lymph # (Auto) 2.7, [place] # (Auto) 0.6, Eos # (Auto) 0.3, Baso # (Auto) 0.0 04/09/19 07:32: Sodium 135 L, Potassium 3.6, Chloride 100, Carbon Dioxide 23, Anion Gap 15.6 H, BUN 23 H D, Creatinine 1.10, Estimated Creat Clear 91, Estimated GFR 67, Est GFR ( Amer) 82, Glucose 169 H, Calcium 9.4 I & O for Last 24 hours: Intake & Output 04/06/19 04/07/19 04/08/19 04/09/19 11:59 11:59 11:59 11:59 Intake Total 760 / 760 Output Total 850 / 850 300 / 300 Balance -850 / -850 460 / 460 Weight 207 lb 6.01 oz 208 lb 2 oz - Constitutional no acute distress Comments: Sitting in a chair at bedside fully dressed and talking with a friend. Appears very comfortable - *Routine Respiratory Exam Present: CTA bilaterally (Anteriorly and posteriorly) - *Routine Cardiovascular Exam Present: RRR Comments: Fewer PVCs. Normal sinus rhythm. - *Routine Extremities Exam Absent: edema, calf tenderness - *Routine Neurological Exam Present: alert, oriented X3 Results Completed studies during hospitalization [Text1]: 04/07/2019 chest x-ray IMPRESSION: Mild cardiomegaly, no acute chest pathology noted Cardiac catheterization 04/07/2019 IMPRESSION Severe to critical disease and a greater than 3 mm large first diagonal artery which was successfully stented with one drug-eluting stent followed by bifurcating stent to the proximal to mid LAD. Left ventricular dilatation with severely elevated LVEDP PLAN 1. Brilinta and aspirin 2. Entresto and carvedilol 3. Patient has severely elevated LVEDP and should be placed on low-dose loop diuretic combined with Aldactone 4. LDL goal 55. Start high intensity statin 5. Cardiac rehabilitation 6. Avoidance of tobacco products 7. Complete absence of any social alcohol beverages 8. Echocardiogram in the morning. If ejection fraction is confirmed to be less than 35% patient should be discharged home with a LifeVest Laboratory Tests 04/07/19 04/08/19 04/09/19 18:27 05:10 07:32 WBC 9.3 RBC 5.21 Hgb 15.3 Hct 44.9 MCV 86.1 MCH 29.3 MCHC 34.1 Plt Count 242 Neut % (Auto) 61.7 Lymph % (Auto) 28.7 [place] % (Auto) 6.2 Sodium Potassium Chloride Carbon Dioxide BUN Creatinine Estimated Creat Clear Estimated GFR Glucose 90 Calcium Total Creatine Kinase 117 CK-MB (CK-2) 5.7 H CK-MB (CK-2) Rel Index 4.9 H Troponin I < 0.02 1.06 H Total Protein 6.4 Albumin 3.1 L D Globulin 3.3 H Albumin/Globulin Ratio 0.9 L Triglycerides 86 Cholesterol 125 L LDL Cholesterol 64 VLDL Cholesterol 17 HDL Cholesterol 44 Cholesterol/HDL Ratio 2.8 04/09/19 07:32 WBC RBC Hgb Hct MCV MCH MCHC Plt Count Neut % (Auto) Lymph % (Auto) [place] % (Auto) Sodium 135 L Potassium 3.6 Chloride 100 Carbon Dioxide 23 BUN 23 H D Creatinine 1.10 Estimated Creat Clear 91 Estimated GFR 67 Glucose 169 H Calcium 9.4 Total Creatine Kinase CK-MB (CK-2) CK-MB (CK-2) Rel Index Troponin I Total Protein Albumin Globulin Albumin/Globulin Ratio Triglycerides Cholesterol LDL Cholesterol VLDL Cholesterol HDL Cholesterol Cholesterol/HDL Ratio DS: Diagnosis - Discharge Diagnosis (1) Coronary artery disease Status: Acute (2) Unstable angina Status: Acute (3) Bigeminy Status: Acute (4) Hypertension Status: Acute (5) Hyperlipidemia Status: Acute (6) ASCVD (arteriosclerotic cardiovascular disease) Status: Acute (7) Presence of stent in LAD coronary artery Status: Acute (8) Cardiomyopathy Status: Acute Discharge Plan - Patient Discharge Instructions ACTIVITY: Limited activity DIET: low fat, low cholesterol Additional Instructions: 1. Zoll LifeVest to be placed today prior to discharge 2. Recommend a BMP later this week prior to follow-up with Dr. Angelo on Monday 3. Follow-up in our office next Monday or Monday 4. Limited duty at work until follow-up next week. Patient Instructions: Heart Attack, Cardiomyopathy, Cardiac Catheterization, Acute Coronary Syndrome, Heart-Healthy Diet, DI for Cardiac Catheterization, DI for Coronary Stenting, DI for Cardiomyopathy, DI for Surgical Site Infection, Surgical Site Infection, DI for Coronary Artery Disease - Follow up Plan Follow up with: Elke Angelo MD [Primary Care Provider] - 04/13/19 Fracisco Vivas MD [Staff Physician] - 04/15/19 Disposition: Home, Self-Long-Term Medications: Home Medications Medication Instructions Recorded Confirmed Type Butalbital/Acetaminophen 1 - 2 each PO Q4HP PRN 04/08/19 04/08/19 History [Butalbital-Acetaminophn 50-325] Esomeprazole Magnesium 40 mg PO DAILY 04/08/19 04/08/19 History Fluticasone Propionate [Flovent 2 puff INHALATION BID 04/08/19 04/08/19 History Hfa 110mcg Inhaler] Fluticasone Propionate [Xhance] 1 spray NS BID 04/08/19 04/08/19 History Metformin HCl 500 mg PO DAILY 04/08/19 04/08/19 History Montelukast Sodium [Montelukast 10 mg PO HS 04/08/19 04/08/19 History 10mg Tab] Rosuvastatin Calcium 20 mg PO DAILY 04/08/19 04/08/19 History Aspirin [Aspirin 81mg EC Tab] 81 mg PO DAILY tablet. 04/09/19 Rx Carvedilol [Carvedilol 12.5mg Tab] 12.5 mg PO BID #60 tab 04/09/19 Rx Digoxin [Digoxin 0.125mg Tablet] 125 mcg PO DAILY #30 tab 04/09/19 Rx Furosemide [Lasix 40mg tab] 40 mg PO DAILY #30 tab 04/09/19 Rx Nitroglycerin [Nitrostat 0.4mg SL 0.4 mg SL Q5MINP PRN #60 tab.subl 04/09/19 Rx Tablet] Potassium Chloride [K-Tab ER 20 20 meq PO DAILY #30 tab 04/09/19 Rx mEq] Sacubitril/Valsartan [Entresto 1 each PO BID #60 tab 04/09/19 Rx 24/26mg Tablet] Spironolactone [Aldactone 25mg Tab] 25 mg PO DAILY #30 tab 04/09/19 Rx Ticagrelor [Brilinta 90mg Tablet] 90 mg PO BID #60 tab 04/09/19 Rx Prescriptions/Medication Reconciliation: New Spironolactone [Aldactone 25mg Tab] 25 mg PO DAILY #30 tab Ticagrelor [Brilinta 90mg Tablet] 90 mg PO BID #60 tab Carvedilol [Carvedilol 12.5mg Tab] 12.5 mg PO BID #60 tab Digoxin [Digoxin 0.125mg Tablet] 125 mcg PO DAILY #30 tab Sacubitril/Valsartan [Entresto 24/26mg Tablet] 1 each PO BID #60 tab Potassium Chloride [K-Tab ER 20 mEq] 20 meq PO DAILY #30 tab Furosemide [Lasix 40mg tab] 40 mg PO DAILY #30 tab Aspirin [Aspirin 81mg EC Tab] 81 mg PO DAILY tablet. Nitroglycerin [Nitrostat 0.4mg SL Tablet] 0.4 mg SL Q5MINP PRN #60 tab.subl PRN Reason: Chest Pain Continued Rosuvastatin Calcium 20 mg PO DAILY Fluticasone Propionate [Flovent Hfa 110mcg Inhaler] 2 puff INHALATION BID Esomeprazole Magnesium 40 mg PO DAILY Butalbital/Acetaminophen [Butalbital-Acetaminophn 50-325] 1 - 2 each PO Q4HP PRN PRN Reason: Headache Fluticasone Propionate [Xhance] 1 spray NS BID Montelukast Sodium [Montelukast 10mg Tab] 10 mg PO HS Metformin HCl 500 mg PO DAILY Discontinued Ramipril 5 mg PO DAILY - Problem Reconciliation Problems Reviewed?: Yes
== END 2019-04-09 13:30 | disposition home or self-care (01) | DRG 247 ==
LOC: ER 18:22 → SDC 18:53 → 2ND 20:18
PROVIDERS: ADMIT Family Medicine; ATTEND Family Medicine
CPT/HCPCS: 36415; 71010; 71045; 80048; 80053; 80061; 80076; 82550; 82553; 84484; 85025; 85347; 92928; 92929; 93005; 93306; 93458; 96365; 96375; 99152; 99153; 99284; C1725; C1769; C1876; C9600; C9601; J1644; Q9967

== ENCOUNTER → 2019-04-12 08:42 | Outpatient (CLI) | payer BC, SELFPAY ==
[2019-04-12 09:03] LABS: Basophils % 0.5 % (0.1-2.0); Eosinophils # 0.3 K/mm3 (0.0-0.4); Eosinophils % 3.9 % (0.1-12.0); Hematocrit 46.4 % (42.0-52.0); Hemoglobin 15.3 g/dL (14.1-18.0); Lymphocytes # 2.4 K/mm3 (0.7-4.5); Lymphocytes % 30.5 % (10-50); Mean Corpuscular HGB Conc 33.1 g/dL (31.8-35.4); Mean Corpuscular Hemoglobin 29.2 pg (27.0-31.2); Mean Corpuscular Volume 88.2 fl (80-94); Mean Platelet Volume 8.6 fl (7.4-10.4); Monocytes # 0.3 K/mm3 (0.1-1.0); Monocytes % 4.4 % (1.7-9.3); Neutrophils # 4.7 K/mm3 (1.8-7.8); Neutrophils % 60.6 % (37.0-80.0); Platelet Count 255 K/mm3 (142-424); Red Blood Count 5.27 M/mm3 (4.60-6.20); White Blood Count 7.8 K/mm3 (4.8-10.8)
[2019-04-12 09:51] LABS: Anion Gap 13.5 mEq/L (5-15); Blood Urea Nitrogen 40 mg/dL (7-18); Calcium 10.1 mg/dL (8.5-10.1); Carbon Dioxide 28 mmol/L (21.0-32.0); Chloride 101 mmol/L (98-107); Creatinine,Serum 1.52 mg/dL (0.70-1.30); Estimated Glomerular Filt Rate 46 ml/min (>60); GFR (African American) 56 ML/MIN (>60); Glucose 164 mg/dL (74-106); Potassium 5.5 mmoL/L (3.5-5.1); Sodium 137 mmol/L (136-145)
[2019-04-12 13:21] LABS: Digoxin 1.52 ng/mL (0.90-2.00)
== END ==
PROVIDERS: Family Medicine; Visit Provider Internal Medicine
DX: I25.10 Atherosclerotic heart disease of native coronary artery without angina pectoris (principal); E78.5 Hyperlipidemia, unspecified; I10 Essential (primary) hypertension; I42.9 Cardiomyopathy, unspecified; Z95.5 Presence of coronary angioplasty implant and graft
CPT/HCPCS: 36415; 80048; 80162; 85025

== ENCOUNTER 2019-04-16 15:23 | Outpatient (RCR) | payer BC, MEDICARE, SELFPAY | END 2019-07-08 13:22 | disposition home or self-care (01) | LOC: PT 15:23 | PROVIDERS: Visit Provider Internal Medicine | DX: Z95.5 Presence of coronary angioplasty implant and graft (principal) | CPT/HCPCS: 93798 ==

== ENCOUNTER → 2019-09-17 14:30 | Outpatient (CLI) | payer MEDICARE, SELFPAY ==
--- NOTE | 2019-09-17 14:37 | XR_ITS ---
PROCEDURE: XR CHEST 2V CLINICAL HISTORY: CARDIOMYOPATHY COMPARISON: XR CHEST PORTABLE from 04/07/2019 FINDINGS: The cardiomediastinal silhouette and pulmonary vascularity are within normal limits. There is an RV pacemaker present from left subclavian approach. Coronary artery stent is noted on the left No acute bony abnormalities. IMPRESSION: As above, no acute finding Dictated by: Gaston Montaño MD 09/17/2019 18:00 Electronically signed by Gaston Montaño MD in [place] 09/17/2019 18:00
--- NOTE | 2019-09-17 15:25 | ECG_ITS ---
APPROVED REPORT Exam: Resting ECG HR:65 bpm ECG Measurements Heart Rate 65 AXES WV 218 P 35 QRSd 80 QRS 12 QT 380 T 15 QTc 395 <Conclusion> Sinus rhythm with 1st degree AV block Otherwise normal ECG Electronically signed by : Nelson Macedo, 09/17/2019 20:20:56
== END ==
PROVIDERS: PCP Family Medicine; Visit Provider Family Medicine
DX: I42.9 Cardiomyopathy, unspecified (principal)
CPT/HCPCS: 71046; 93005

== ENCOUNTER → 2020-01-20 15:14 | Outpatient (CLI) | payer MEDICARE, SELFPAY ==
--- NOTE | 2020-01-20 15:21 | CA_ITS ---
APPROVED REPORT EXAM: Comprehensive 2D, Doppler, and color-flow Echocardiogram Food Safety Field Specialist: Josefina Waggoner RDCS Ht: 6 ft 3 in Wt: 210lbs BSA: 2.24 BP: 125/71 mmHg Indications: CM 2D Dimensions LVOT 2.17 cm (M/F) 1.5-2.5 M-Mode Dimensions RVDd 2.66 cm (0.9-2.6) LVDd 5.28 cm (3.5-5.7) LVDs 3.99 cm (3.5-5.7) IVSd 0.68 cm (0.6-1.1) PWd 0.87 cm (0.6-1.1) EF (Teich) 48.10% FS 24.40% EDV (Teich) 134.20 mL ESV (Teich) 69.60 mL LV Diastology E/A Ratio 0.78 Mitral Valve MV A Velocity 70.00 (40-130 cm/s) Left Ventricle Left atrium is mildly enlarged, left ventricle is normal size, visually estimated ejection fraction 50% with no regional wall motion abnormality, grade 1 diastolic dysfunction seen without tissue Doppler evidence of raise left atrial pressure. Right Ventricle Right atrium and right ventricle are normal size and contractility. Aortic Valve Aortic valve is minimally thickened and fibrosed, there is no aortic stenosis, there is mild aortic insufficiency. Mitral Valve Mitral valve is grossly normal, there is mild mitral regurgitation. Tricuspid Valve Tricuspid valve is grossly normal, there is mild tricuspid regurgitation. Tricuspid radiation jet velocity is inadequate for calculation of the right ventricular systolic pressure. Pulmonic Valve Pulmonic valve is poorly visualized. Great Vessels Aortic root is normal size. Pericardium No significant pericardial effusion noted. Conclusion 1. Normal left ventricular size, visually estimated ejection fraction 50% with no regional wall motion abnormality, grade 1 diastolic dysfunction seen without tissue Doppler evidence of raise left atrial pressure. 2. Mild aortic, mild mitral and tricuspid regurgitation. 3. No significant pericardial effusion noted. Electronically signed by : Lázaro Rodriguez, 01/20/2020 20:23:50
== END ==
PROVIDERS: PCP Family Medicine; Visit Provider Family Medicine
DX: I42.8 Other cardiomyopathies (principal)
CPT/HCPCS: 93306

== ENCOUNTER → 2020-08-12 10:43 | Outpatient (CLI) | payer MEDICARE, SELFPAY ==
[2020-08-13 10:21] LABS: Covid-19 Nasal PCR Sendout P&C Positive
--- NOTE | 2020-08-13 10:29 | PC.NURSE ---
PATIENT NOTIFIED OF POSITIVE COVID TEST RESULTS
== END ==
PROVIDERS: PCP Family Medicine; Visit Provider Nurse Practitioner
DX: Z20.828 Contact with and (suspected) exposure to other viral communicable diseases (principal); U07.1 COVID-19
CPT/HCPCS: U0004

== ENCOUNTER → 2020-08-14 08:02 | Outpatient (CLI) | payer MEDICARE, SELFPAY ==
[2020-08-14] VITALS (10 sets, daily range): BP systolic 104–121; BP diastolic 72–80; PULSE 66–78; RESP 16; TEMP 36.7–37.1; O2SAT 96–100
--- NOTE | 2020-08-14 08:30 | PC.NURSE ---
#20 g IV established in R AC upon arrival for infusion (2 sticks) initial VS BP 104/70 HR 73 RR 16 T 98.8 Sa02 98% onRA will continue to monitor
--- NOTE | 2020-08-14 09:48 | PC.NURSE ---
pt infusion complete at this time, VSS, no distress noted Will continue to monitor
--- NOTE | 2020-08-14 11:00 | PC.NURSE ---
IV d/c at this time, VSS, no distress noted. Pt ambulated at D/C
== END ==
PROVIDERS: PCP Family Medicine; Visit Provider Family Medicine
DX: U07.1 COVID-19 (principal)
CPT/HCPCS: 96365

== ENCOUNTER 2021-03-21 12:15 | Emergency (ER) | payer MEDICARE, SELFPAY ==
[2021-03-21 12:37] VITALS: BP 111/65; PULSE 76; RESP 19; TEMP 36.8; O2SAT 96; BMI 26.2
[2021-03-21 12:41] VITALS: BP 111/65; PULSE 76; RESP 19; TEMP 36.8; O2SAT 96
--- NOTE | 2021-03-21 13:02 | HMH.EDUTC ---
[facility] [place] Disposition Clinical Impression: Exposure to COVID-19 virus Disposition: Home, Self-Care Condition on Discharge: Good Instructions: DI for COVID-19 (Suspected or Confirmed ) Additional Instructions: covid swab was sent to lab, call later today for results. self isolate until test results are known to be negative Referrals: Elke Angelo MD [Primary Care Provider] - Time of Disposition: 13:05 Medical Decision Making - Ezequiel Inquiry Pt receiving controlled substance: No Vital Signs: 03/21/21 12:37 03/21/21 12:41 Temperature 98.2 F 98.2 F Temperature Source Oral Pulse Rate 76 Pulse Rate [Right Brachial] 76 Respiratory Rate 19 19 Blood Pressure 111/65 Blood Pressure [Right Arm] 111/65 Blood Pressure Mean [Right Arm] 80 Blood Pressure Source [Right Arm] Automatic Cuff Blood Pressure Position [Right Arm] Sitting 02 Sat by Pulse Oximetry 96 Oxygen Delivery Method Room Air Orders (Tests/Meds): ORDERS Category Date Time Status Covid-19 Nasal PCR ([facility]) Routine Lab 03/21/21 12:36 Received [facility] [place] HPI - General Chief complaint: Urgent Treatment Center Stated complaint: covid exposure Time Seen by Provider: 03/21/21 13:02 Mode of Arrival: Ambulatory Source of Information: Patient Limitations: No Limitations Description of Symptoms (Recalled from Triage Doc. by RN): COVID TEST D/T EXPOSURE HEENT Symptoms (Recalled from RN notes): No Resp Symptoms (Recalled from RN notes): No Skin Symptoms (Recalled from RN notes): No MS Symptoms (Recalled from RN notes): No Functional Status (Recalled from RN notes): WNL - History of Present Illness Provider Complaint: 65 yr old male presnets for covid test. pt states he had exposer and has what he thinks is allergies but wants to make sure. has hx of covid vaccine and had covid in aug - Related Data Home Medications Medication Instructions Recorded Confirmed Esomeprazole Magnesium 40 mg PO DAILY 04/08/19 07/16/20 Fluticasone Propionate [Flovent 2 puff INHALATION BID 04/08/19 07/16/20 Hfa 110mcg Inhaler] Fluticasone Propionate [Xhance] 1 spray NS BID 04/08/19 07/16/20 Montelukast Sodium [Montelukast 10 mg PO HS 04/08/19 07/16/20 10mg Tab] Rosuvastatin Calcium 20 mg PO DAILY 04/08/19 07/16/20 carvedilol 12.5 mg tablet 6.25 mg PO BID tab 04/17/19 07/16/20 coenzyme Q10 300 mg capsule 300 mg PO DAILY 04/17/19 07/16/20 [id number] 1 tab PO tab 10/22/20 50 mg-325 mg-40 mg tablet metformin 500 mg tablet,extended tab PO 10/22/20 release 24 hr spironolactone 25 mg tablet 25 mg PO tab 10/22/20 Previous Rx's Medication Instructions Recorded Aspirin [Aspirin 81mg EC Tab] 81 mg PO DAILY tablet. 04/09/19 Digoxin [Digoxin 0.125mg Tablet] 125 mcg PO DAILY #30 tab 04/09/19 Nitroglycerin [Nitrostat 0.4mg SL 0.4 mg SL Q5MINP PRN #60 tab.subl 04/09/19 Tablet] Sacubitril/Valsartan [Entresto 1 each PO BID #60 tab 04/09/19mg Tablet] ticagrelor 90 mg tablet 90 mg PO BID #180 tab 04/13/20 ciprofloxacin 0.3 %-dexamethasone 3 drp OTIC BID 5 Days #7.5 ml 07/06/20 0.1 % ear drops,suspension Allergies Allergy/AdvReac Type Severity Reaction Status Date / Time No Known Allergies Allergy Verified 10/22/20 15:24 - Worker's Comp Is this a Worker's Comp case?: No [facility] History - Hepatitis A Screen Drug use history?: No High risk sexual behaviors?: No History of sexually transmitted infection?: No Currently employed?: No Childcare worker?: No Do you have indoor plumbing?: Yes Do you have electricity?: Yes Attestation statement:: This patient has been screened for Hepatitis A risk factors. I have reviewed the patient's past medical history: Yes Medical History: Reports:: Arrhythmia, Coronary Artery Disease, Gastroesophageal Reflux Disease(GERD), Hyperlipidemia, Hypertension, Peripheral Artery Disease Denies:: Cancer, Diabetes Mellitus Type 1, Diabetes Mellitus Type 2, MRSA Other Medic
== END 2021-03-21 13:10 | disposition home or self-care (01) ==
PROVIDERS: Emergency Provider Nurse Practitioner Family; PCP Family Medicine
DX: Z20.822 Contact with and (suspected) exposure to COVID-19 (principal); I25.10 Atherosclerotic heart disease of native coronary artery without angina pectoris; K21.9 Gastro-esophageal reflux disease without esophagitis; E78.5 Hyperlipidemia, unspecified; I10 Essential (primary) hypertension; Z79.899 Other long term (current) drug therapy
CPT/HCPCS: G0463; 99202; U0003

== ENCOUNTER → 2021-10-15 15:24 | Outpatient (CLI) | payer MEDICARE, SELFPAY ==
--- NOTE | 2021-10-15 15:29 | XR_ITS ---
FINAL REPORT CLINICAL HISTORY: CARDIOMYPATHY UNSPECIFIED TYPE COMPARISON: September 17, 2019 FINDINGS: Two views of the chest were obtained. The heart size and pulmonary vascularity are within normal limits. The mediastinum is normal. No acute pulmonary abnormality is identified. There is no pneumothorax. The bony thorax is intact. IMPRESSION: No active cardiopulmonary disease. Reviewed, Interpreted and Dictated by Wilman Elkins III, MD Transcribed by Olive Bustillos Authenticated by Wilman Elkins III, MD on 10/15/2021 04:24:14 PM [facility]
== END ==
PROVIDERS: PCP Family Medicine; Visit Provider Family Medicine
DX: I42.9 Cardiomyopathy, unspecified (principal)
CPT/HCPCS: 71046

== ENCOUNTER → 2022-02-16 07:15 | Outpatient (CLI) | payer MEDICARE, SELFPAY ==
--- NOTE | 2022-02-16 07:15 | CT_ITS ---
FINAL REPORT TECHNIQUE: Thin section axial CT images of the facial bones and sinuses were obtained without contrast. Coronal reformatted images were also obtained. This study was performed with techniques to keep radiation doses as low as reasonably achievable, (ALARA). Individualized dose reduction techniques using automated exposure control or adjustment of mA and/or kV according to the patient's size were employed. CLINICAL HISTORY: chronic sinusitis COMPARISON: September 18, 2018 FINDINGS: CT SINUSES There is moderate mucosal thickening of multiple sinuses. There is opacification of multiple ethmoid air cells. Overall appearance is slightly improved. No fluid levels are identified. There are multiple nodules in the mid and upper nasal cavity which likely represents nasal polyposis which is also slightly improved. Soft tissue thickening obscures the maxillary sinus ostia and infundibula. There is no significant nasal septal deviation. No fracture or acute bony abnormality is identified. IMPRESSION: Widespread sinusitis, overall partially improved. Reviewed, Interpreted and Dictated by Wilman Elikns III, MD Transcribed by Olive Bustillos Authenticated and [facility]
== END ==
PROVIDERS: PCP Family Medicine; Visit Provider Otolaryngology
DX: J33.9 Nasal polyp, unspecified (principal); J34.2 Deviated nasal septum
CPT/HCPCS: 70486

== ENCOUNTER → 2022-03-26 08:12 | Outpatient (CLI) | payer MEDICARE, SELFPAY ==
--- NOTE | 2022-03-26 08:18 | ECG_ITS ---
APPROVED REPORT Exam: Resting ECG HR:66 bpm ECG Measurements Heart Rate 66 AXES [place] 226 P 56 QRSd 85 QRS 10 QT 372 T 37 QTc 386 Conclusion SINUS RHYTHM WITH FIRST DEGREE AV BLOCK POSSIBLE RIGHT VENTRICULAR CONDUCTION DELAY [RSR (QR) IN V1/V2] ABNORMAL ECG UNCONFIRMED REPORT Electronically signed by : Nelson Macedo MD 03/28/2022 14:33:23
[2022-03-26 08:23] LABS: MANUAL DIFFERENTIAL MANUAL DIFFERENTIAL (MANUAL DIFF)
[2022-03-26 09:18] LABS: Basophils # 0.1 K/mm3 (0-0.2); Basophils % 0.8 % (0.1-2.0); Eosinophils # 0.3 K/mm3 (0.0-0.4); Eosinophils % 4.3 % (0.1-12.0); Hematocrit 42.1 % (42.0-52.0); Hemoglobin 13.1 g/dL (14.1-18.0); Lymphocytes # 2.7 K/mm3 (0.7-4.5); Lymphocytes % 36.3 % (10-50); Mean Corpuscular HGB Conc 31.2 g/dL (31.8-35.4); Mean Corpuscular Hemoglobin 29.1 pg (27.0-31.2); Mean Corpuscular Volume 93.3 fl (80-94); Mean Platelet Volume 8.2 fl (7.4-10.4); Monocytes # 0.4 K/mm3 (0.1-1.0); Monocytes % 6.1 % (1.7-9.3); Neutrophils # 3.8 K/mm3 (1.8-7.8); Neutrophils % 52.5 % (37.0-80.0); Platelet Count 246 K/mm3 (142-424); Red Blood Count 4.51 M/mm3 (4.60-6.20); Red Cell Distribution Width 13.9 % (11.5-17.5); White Blood Count 7.3 K/mm3 (4.8-10.8)
[2022-03-26 09:36] LABS: Alanine Aminotransferase 17 U/L (12-78); Albumin/Globulin Ratio 1.6 (1.1-1.8); Alkaline Phosphatase 74 U/L (38-126); Anion Gap 11.1 mEq/L (5-15); Aspartate Amino Transferase 24 U/L (17-59); Blood Urea Nitrogen 23 mg/dl (9-20); Calcium 9.4 mg/dl (8.4-10.2); Carbon Dioxide 26 mmol/L (22.0-30.0); Chloride 106 mmol/L (98-107); Estimated Glomerular Filt Rate 67 ml/min (>60); GFR (African American) 81 ML/MIN (>60); Globulin 2.5 g/dL (1.3-3.2); Glucose 118 mg/dl (74-100); Potassium 5.1 mmoL/L (3.5-5.1); Sodium 138 mmol/L (136-145); Total Protein,Serum 6.5 g/dl (6.3-8.2)
[2022-03-26 09:50] LABS: 25-OH Vitamin D, Total 42.5 ng/mL (30-100)
[2022-03-26 09:53] LABS: Bilirubin,Total 0.1 mg/dl (0.2-1.3)
[2022-03-26 11:35] LABS: Eosinophils % 3 % (0-3); Lymphocytes % 47 % (10-50); Monocytes % 2 % (2-9); Neutrophils % 48 % (42-76); Platelet Estimate Normal; Total Cells Counted 100
[2022-03-26 11:36] LABS: RBC Morphology Normal
[2022-03-27 09:09] LABS: Immunoglobulin G, Qn 821 mg/dL (603-1613)
[2022-04-01 10:36] LABS: Immunoglobulin E, Total 401 IU/mL (6-495)
== END ==
PROVIDERS: PCP Nurse Practitioner; Visit Provider Otolaryngology
DX: J33.9 Nasal polyp, unspecified (principal); J34.2 Deviated nasal septum; Z01.818 Encounter for other preprocedural examination; Z20.822 Contact with and (suspected) exposure to COVID-19
CPT/HCPCS: 80053; 82306; 82784; 82785; 85007; 85014; 85018; 85048; 85049; 93005; C9803; U0003; U0005

== ENCOUNTER 2022-03-29 06:56 | Day surgery (SDC) | payer MEDICARE, SELFPAY ==
[2022-03-25 10:10] VITALS: BMI 26.4
[2022-03-29] VITALS (9 sets, daily range): BP systolic 107–154; BP diastolic 60–94; PULSE 76–105; RESP 12–18; TEMP 36.1–43; O2SAT 95–97
[2022-03-29 07:27] LABS: POC Glucose,Bedside 111 (70-110)
--- NOTE | 2022-03-29 10:26 | P.OP_ITS ---
Date of procedure: 03/29/22 Pre-op Diagnosis:: Chronic pansinusitis Post-op Diagnosis:: Chronic pansinusitis Procedure performed:: Functional endoscopic sinus surgery with nasal endoscopy and bilateral complete ethmoidectomy, nasal endoscopy and bilateral frontal sinusotomies, nasal endoscopy and bilateral maxillary antrostomies and removal of antral mucosa disease, nasal endoscopy and bilateral sphenoidotomies Surgeon:: Kyrie Roberson MD [employer]NAGER M[employer]:: Other Anesthesia: GETA Estimated blood loss (mL): 150 Operative findings:: Severe chronic pansinusitis bilaterally with inflammatory polyp disease obstructing the anterior and posterior ethmoid, frontal recess, sphenoid recess, and maxillary sinus ostium bilaterally Operative note:: The patient was brought to the operating room and placed supine and after adequate general anesthesia the nose was draped in the usual sterile fashion and 1% lidocaine with epinephrine used to local infiltrate the septum and middle meatuses and then the image guided system was brought into position and calibrated but the system was malfunctioning and could not be used. Therefore standard endoscopic sinus surgery was performed. Attention was first drawn to the right middle meatus. Using a 0 degree sinus endoscope the right middle meatus was visualized and the middle turbinate medialized and then uncinectomy performed with a pediatric backbiter and microdebrider clearing the nasofrontal tract and infundibulum the natural ostium and to the maxillary sinus was then enlarged and cleared of obstructing polyp disease till the maxillary sinus was well aerated and then inflammatory polyp disease in the anterior and posterior ethmoid was cleared with the microdebrider working up to the skull base, laterally to the medial orbital wall, and posteriorly to the face of the sphenoid taking care to spare normal mucosa at the margins of dissection while clearing obstructive inflammatory polyp disease. Attention was then drawn to the nasofrontal tract. Polyps were cleared from the nasofrontal tract until the nasofrontal tract was easily cannulated and the frontal sinus well aerated and then attention drawn to the sphenoid recess. Obstructing polyp disease surrounding the superior turbinate was cleared with a microdebrider until the sphenoid ostium was identified and the sphenoid ostium and sphenoid sinus were well aerated. Resorbable packing was then placed in the right middle meatus and attention drawn to the left side. In a similar fashion the middle turbinate was medialized and uncinectomy again performed clearing the nasal from tract and infundibulum the natural ostium to the maxillary sinus was then enlarged and cleared of obstructing polyp disease till the maxillary sinuses well aerated. Anterior and posterior ethmoidectomy was again performed clearing disease polypoid mucosa in the anterior and posterior ethmoid while sparing nor mucosa at the margins the frontal recess was cleared of obstructing polyp disease till the frontal sinus was well aerated and the nasofrontal tract easily cannulated the sphenoid recess was cleared of obstructing polyp disease surrounding the superior turbinate until the sphenoid ostium was visualized and the sphenoid sinus well aerated. Resolvable packing was placed in the left middle meatus and the procedure concluded. All counts correct. Blood loss less than 150 mL and patient was sent to recovery in stable condition. Condition: stable Disposition: PACU Complications:: none
--- NOTE | 2022-03-29 10:33 | HMH.ANESCL ---
[facility] Anesthesia Checklist - Patient Identification Patient Identification: Arm Band, Verbal (Name & ) - Structural Data Admitted From: Home Planned Operative Procedure/s: FESS Consent for Planned Operative Procedure(s) Verified: Yes Verified Documents: Surgical Consent - NPO Status Verified Time NPO: 00:00 - Chart Verification Results Verified: CBC - Additional verifications Anesthesia Reactions: No Hx Blood Transfusions: No Blood Transfusion Reaction: No - Airway Assessment C-Spine Mobility Assessed: Yes TMJ Mobility Assessed: Yes Dentition: Good Dentition - Neurological Assessment Level of Consciousness: Awake, Alert, Appropriate - Anesthesia Plan Anesthesia Risk discussed: Yes ASA Class: III Anesthesia Type: General [facility] History I have reviewed the patient's past medical history: Yes Medical History: Reports:: Arrhythmia, Coronary Artery Disease, Diabetes Mellitus Type 2, Gastroesophageal Reflux Disease(GERD), Hyperlipidemia, Hypertension, Internal Pacemaker, Peripheral Artery Disease Denies:: Cancer, Diabetes Mellitus Type 1, MRSA, Seizures *Have you ever received a pneumonia vaccine?: Yes *Have you received a flu vaccine this season?: Yes Other Medical History: Reports: Arthritis, Sinus Problems. Denies: Blood Transfusion Reaction Anesthesia experience/problems:: none Laterality Cases: Right: Arthroscopy Knee, Arthroscopy Shoulder Other Surgeries: Yes: Cardiac Catheterization, Colonoscopy, Coronary Stent, EGD, Pacemaker Amputation: No Fractures: Yes - *Social History Last grade of school completed: Advanced degree Smoking Status: Never smoker Alcohol Intake: current Alcohol Intake Frequency:: holidays/special occasions only Substance Use Type: denies use *Occupational Status:: employed Housing: house Household Members: spouse *Travel in the last 8 weeks: None Family Hx:: Cancer, Heart Attack
--- NOTE | 2022-03-29 10:35 | HMH.ANESI ---
[facility] Anesthesia Record Part I Intake, IV Amount: 800 Estimated blood loss (mL): 200 Urine output (mL): 0 Blood Pressure: 124/70 SaO2: 96 Pulse Rate: 105 Respiratory Rate: 16 Temperature: 97.0 F Patient is:: Drowsy Stable to PACU at:: 10:30
[2022-03-29 10:44] LABS: POC Glucose,Bedside 119 (70-110)
--- NOTE | 2022-03-29 11:31 | SUR.PHASEI ---
1038 BS obtained with result of 119. Gadiel Maxwell CRNA notified. No new orders given at this time. [id number] called and gave detailed report to Tiffany Miranda RN 1100 transported via stretcher to post op. vital signs stable. denies pain. left in stable condition with Michael Rodriguez RN at bedside.
--- NOTE | 2022-03-30 07:54 | HMH.ANESII ---
[facility] [place] Anesthesia Record Part II Discharge Time: 11:00 Destination: Surgical Day Care (OP Surgery) PACU nurse assessment reviewed?: Yes Patient Condition:: Good Anesthesia Complications:: None Swallowing reflex intact?: Yes Cyanosis?: No Blood Pressure: 111/61 Pulse Rate: 83 Temperature: 97 F Mental Status: Alert & Oriented Pain level:: 0 Nausea and/or vomitting:: None Intake, IV Amount: 0
[2022-03-30 07:55] VITALS: BP 111/61; PULSE 83; TEMP 36.1
== END 2022-03-29 11:30 | disposition home or self-care (01) ==
LOC: OR 06:58
PROVIDERS: PCP Family Medicine; Visit Provider Otolaryngology
PROC: (CPT 30520; principal; 2022-03-29 08:15)
DX: J32.4 Chronic pansinusitis (principal); E11.9 Type 2 diabetes mellitus without complications; I10 Essential (primary) hypertension; E78.5 Hyperlipidemia, unspecified; Z79.899 Other long term (current) drug therapy
CPT/HCPCS: 31253; 31267; 31287; 82962; 88305; 96374; J2405; J2710

== ENCOUNTER → 2023-01-10 09:24 | Outpatient (CLI) | payer MEDICARE, SELFPAY ==
[2023-01-10 11:00] LABS: Anion Gap 15.3 mEq/L (5-15); Blood Urea Nitrogen 16 mg/dl (9-20); Calcium 9.5 mg/dl (8.4-10.2); Carbon Dioxide 28 mmol/L (22.0-30.0); Chloride 101 mmol/L (98-107); Estimated Glomerular Filt Rate 60 ml/min (>60); GFR (African American) 73 ML/MIN (>60); Glucose 95 mg/dl (74-100); Potassium 5.3 mmoL/L (3.5-5.1); Sodium 139 mmol/L (136-145)
[2023-01-10 11:06] LABS: NT Pro Brain Natriuretic Pep. 34.4 pg/mL (0-125)
== END ==
PROVIDERS: PCP Family Medicine
DX: I50.22 Chronic systolic (congestive) heart failure (principal)
CPT/HCPCS: 36415; 80048; 83880

== ENCOUNTER 2023-11-01 08:04 | Day surgery (SDC) | payer MEDICARE, SELFPAY ==
[2023-11-01] VITALS (11 sets, daily range): BP systolic 91–147; BP diastolic 54–95; PULSE 53–76; RESP 16–18; TEMP 36.7; O2SAT 95–100; BMI 27.0
--- NOTE | 2023-11-01 07:18 | IR_ITS ---
APPROVED REPORT Patient Location: Outpatient Graduate Engineer: LAURIE Bello RT (R) PROCEDURES Left heart catheterization Left ventriculogram Selective coronary angiogram INDICATION Known coronary artery disease, Angina pectoris Informed consent was obtained prior to the procedure. COMPLICATIONS NONE Estimated Blood Loss: LESS THAN 10 ML TECHNIQUE One percent lidocaine used to anesthetize the right anterior aspect of the wrist. The right radial artery was accessed via the Seldinger technique. A 6 Armenian sheath was placed in the right radial artery. 2.5 mg of Verapamil, 800 mcg of nitroglycerin, 1mg Lidocaine and 5000 U Heparin were given through the arterial sheath. The papa catheter was also used to perform left heart catheterization, left ventriculogram and selective coronary angiogram. At the end of the procedure the sheath was removed good hemostasis was achieved using Traclet band, patient was transferred to the postop holding area in stable condition. ANGIOGRAPHIC RESULTS The left main artery Normal The left anterior descending artery Has proximal 10% stenoses followed by a stent which extends into the mid segment. The stent is widely patent with minimal in-stent restenosis. The remaining LAD is widely patent. A large first diagonal artery has a bifurcating stent with the ostium having 70% stenosis. A first septal anode machine operator is 1.5 mm in diameter and has an ostial 80 to 90% stenosis. The circumflex artery Nondominant and normal The right coronary artery Large dominant with moderate diffuse 30% calcifications The OSULLIVAN ventriculogram reveals Preserved at 50% The left ventricular end-diastolic pressure 15 mmHg IMPRESSION Coronary artery disease as described above most notably a large first diagonal artery which has bifurcating stents and has a 70% ostial stenosis in the origin of the first diagonal artery. Typically these lesions do not produce angina and given the LAD is widely patent I am reluctant to consider any percutaneous intervention which would encroach upon the LAD Preserved ejection fraction Borderline LVEDP PLAN 1. Continue medical management 2. Maximize antianginal medications consider adding Ranexa and Imdur 3. If in the future patient's angina becomes recalcitrant I would bring him back and revascularized the diagonal artery however these lesions typically respond favorably to medical management and did not require additional intervention Electronically signed by : Fracisco Vivas MD 11/01/2023 10:46:28
[2023-11-01 08:38] LABS: Basophils # 0.1 K/mm3 (0-0.2); Basophils % 1.5 % (0.1-2.0); Eosinophils # 0.3 K/mm3 (0.0-0.4); Eosinophils % 5.8 % (0.1-12.0); Hematocrit 44.4 % (42.0-52.0); Hemoglobin 14.1 g/dL (14.1-18.0); Lymphocytes # 2.6 K/mm3 (0.7-4.5); Lymphocytes % 46.5 % (10-50); Mean Corpuscular HGB Conc 31.7 g/dL (31.8-35.4); Mean Corpuscular Hemoglobin 29.5 pg (27.0-31.2); Mean Corpuscular Volume 92.8 fl (80-94); Mean Platelet Volume 7.7 fl (7.4-10.4); Monocytes # 0.3 K/mm3 (0.1-1.0); Monocytes % 5.6 % (1.7-9.3); Neutrophils # 2.3 K/mm3 (1.8-7.8); Neutrophils % 40.7 % (37.0-80.0); Platelet Count 212 K/mm3 (142-424); Red Blood Count 4.78 M/mm3 (4.60-6.20); Red Cell Distribution Width 14.5 % (11.5-17.5); White Blood Count 5.6 K/mm3 (4.8-10.8)
[2023-11-01 09:20] LABS: Anion Gap 10.2 mEq/L (5-15); Blood Urea Nitrogen 20 mg/dl (9-20); Calcium 8.9 mg/dl (8.4-10.2); Carbon Dioxide 28 mmol/L (22.0-30.0); Chloride 105 mmol/L (98-107); Creatinine Clearance Estimated 81 mL/min (50-200); Estimated Glomerular Filt Rate 60 ml/min (>60); GFR (African American) 73 ML/MIN (>60); Glucose 108 mg/dl (74-100); Potassium 4.2 mmoL/L (3.5-5.1); Sodium 139 mmol/L (136-145)
[2023-11-01] MEDS: diphenhydrAMINE 50MG/ML VIAL 50 MG IV (09:48)
[2023-11-01] MEDS: VERAPAMIL 2.5MG/ML 2ML VIAL 2.5 MG IV (09:48)
[2023-11-01] MEDS: NITROGLYCERIN 800MCG/8ML SYR (CATH LAB) 800 MCG IA (09:49)
[2023-11-01] MEDS: HEPARIN 1,000 UNITS/500ML NS (CATH LAB) 3000 UNIT IV (09:49)
[2023-11-01] MEDS: LIDOCAINE 1% 10ML MDV 20 ML IJ (09:49)
[2023-11-01] MEDS: HEPARIN 1,000 UNITS/ML 10ML VIAL (CATH LAB) 10000 UNIT IV (09:49)
[2023-11-01] MEDS: 0.9 % SODIUM CHLORIDE 500 ML 25 ML IV (09:50)
[2023-11-01] MEDS: MIDAZOLAM HCL 1MG/1ML 5ML VIAL 1 MG IV (09:57)
[2023-11-01] MEDS: FENTANYL 100MCG/2ML VIAL 50 MCG IV (09:58)
[2023-11-01] MEDS: IOPAMIDOL-370 (76%);100ML BOTTLE 50 ML IV (14:36)
== END 2023-11-01 13:56 | disposition home or self-care (01) ==
PROVIDERS: PCP Family Medicine; Visit Provider Internal Medicine
DX: Z95.810 Presence of automatic (implantable) cardiac defibrillator; R07.9 Chest pain, unspecified; I25.5 Ischemic cardiomyopathy; E78.2 Mixed hyperlipidemia; I10 Essential (primary) hypertension; I25.110 Atherosclerotic heart disease of native coronary artery with unstable angina pectoris; E11.9 Type 2 diabetes mellitus without complications; Z79.899 Other long term (current) drug therapy; Z79.84 Long term (current) use of oral hypoglycemic drugs
CPT/HCPCS: 80048; 85025; 93458; 99152; C1725; C1769; J1644; Q9967